=== PATIENT | male | born 1990 | race Caucasian/White ===

== ENCOUNTER 2017-02-19 20:56 | Emergency (ER) | payer OTHER ==
[~2017-02-19] VITALS: Ht 182.9 cm; Wt 99.8 kg
[2017-02-19 21:17] VITALS: BP 124/83
--- NOTE | 2017-02-19 22:10 | ED UPPER/LOWER EXTREMITY COMPL ---
History of Present Illness General Chief Complaint: Shoulder Injury Stated Complaint: L SHOULDER INJURY AT WORK Source: patient Exam Limitations: no limitations Vital Signs & Intake/Output Vital Signs & Intake/Output Vital Signs Date Time Temp Pulse Resp B/P B/P Pulse O2 O2 Flow FiO2 Mean Ox Delivery Rate 02/19 2117 96.0 80 18 124/83 98 Room Air Allergies Coded Allergies: amoxicillin (Intermediate, RASH 02/19/17) Reconcile Medications Naproxen (Naprosyn) 500 MG TABLET 1 TAB PO BID PRN PAIN START 02/20/17 Triage Note: PT TO ER C/C LEFT SHOULDER PAIN X 5 HRS S/P LIFTING BOX OVER HEAD AT WORK. STATES HEARD POP, NOW HAS PAIN WHEN LIFTING ARM. DOES NOT WANT TO FILL OUT WORKMANS COMP PAPERWORK PRESENTLY. Triage Nurses Notes Reviewed? yes Onset: Abrupt Duration: hour(s): (5) Timing: no prior history Severity: moderate Severity Numbers: 7 Pain/Injury Location: Left: Shoulder. Method of Injury: LIFTING OVER HEAD Modifying Factors: Improves With: immobilization. Worsens With: movement. HPI: Patient is a 26-year-old male presenting to the emergency department today complaining of left shoulder that started earlier today during work. Patient was lifting a box overhead and felt a pop in his left shoulder. He was able to continue working throughout the day but by the end of the day the pain in his left shoulder worsen. Patient denies any radiation of pain. No numbness or tingling. Denies any pain prior to arrival. Denies any chest pain palpitations or shortness of breath. Pain is worsened. He, intermittently sharp and stabbing. (Tiffany Swain) Past History Travel History Traveled to [place] past 21 day No Medical History Any Pertinent Medical History? see below for history Surgical History Surgical History: non-contributory Psychosocial History What is your primary language Sinhala Tobacco Use: Never used Family History Hx Contributory? No (Tiffany Swain) Review of Systems Review of Systems Constitutional: Reports: no symptoms. Comments Review of systems: See HPI, All other systems negative. Constitutional, no chills fever or weight loss HEENT: No visual changes no sore throat no congestion Cardiovascular: No chest pain ,palpitation Skin, no jaundice no rashes Respiratory: No dyspnea cough GI: No nausea no vomiting Muscle skeletal: no back pain, no neck pain, Neurologic: No numbness Immunology: No splenectomy or history of AIDS (Rene BISWAS,Tiffany) Physical Exam Physical Exam General Appearance: well developed/nourished, no apparent distress, alert, awake , comfortable Comments: Well-developed well-nourished person in no acute distress HEENT: Normocephalic, atraumatic Neck: Supple, no lymphadenopathy, normal range of motion without pain or tenderness Back: Nontender, Cardiovascular: Radial pulses are 2+ bilaterally. Respiratory: No respiratory distress. Extremity: Tender to palpation over the left acromioclavicular joint, limited range of motion of left shoulder secondary to pain. Pain at approximately 45 of left shoulder abduction. Pain with left shoulder abduction. Nontender to palpation over the left clavicle. Full range of motion of left elbow, left wrist without difficulty or pain. Neuro: Alert oriented x3, motor sensory normaL Skin: No appreciable rash on exposed skin, skin is warm and dry. Psych: Mood and affect is normal, memory and judgment is normal. (Rene BISWAS,Tiffany) Progress Differential Diagnosis: contusion, dislocation, fracture, sprain, tendon injury, ROTATOR CUFF TEAR Plan of Care: Orders Procedure Date/time Status Durable Medical Equipment 02/20 2228 Active Diagnostic Imaging: Viewed by Me: Radiology Read. Discussed w/RAD: Radiology Read. Radiology Impression: PATIENT: EMIL SMILEY PRESENT AGE: 26 PATIENT ACCOUNT NO: [id number] : 92 LOCATION: [facility] ORDERING PHYSICIAN: Tiffany BISWAS SERVICE DATE: 02/19/17 EXAM TYPE: RAD - XRY-SHOULDER COMPLETE-LEFT EXAMINATION: XR SHOULDER, LEFT CLINICAL INFORMATION: History of pain with range of motion. [place] a pop COMPARISON: None TECHNIQUE: Three views of the left shoulder. FINDINGS: The bones and soft tissues are normal. No fracture. Glenohumeral and acromioclavicular alignment is anatomic with normal joint space. No abnormal soft tissue calcifications. IMPRESSION: Normal left shoulder. DICTATED BY: Edward Trujillo MD DATE/TIME DICTATED:02/19/172219 ACADEMY DIRECTOR:CARLINE DATE/TIME TRANSCRIBED:2219 CONFIDENTIAL, DO NOT COPY WITHOUT APPROPRIATE AUTHORIZATION. < Electronically signed in Other Vendor System> (Tiffany Swain) Departure Departure Time of Disposition: 2227 Disposition: HOME OR SELF CARE Condition: Stable Clinical Impression Primary Impression: Shoulder sprain Qualifiers: Encounter type: initial encounter Shoulder sprain type: unspecified sprain Laterality: left Qualified Code: S43.402A - Unspecified sprain of left shoulder joint, initial encounter Referrals: Patient Has No Primary Care Dr (PCP/Family) Delgado FLORES,Seng Medrano Additional Instructions: Follow-up with orthopedics, call to make an appointment in the next 5-7 days. Wear sling for comfort. Take anti-inflammatories as prescribed. Return for worsening symptoms or concerns. Departure Forms: Customer Survey General Discharge Information Prescriptions: Current Visit Scripts Naproxen (Naprosyn) 1 TAB PO BID PRN PAIN #14 TAB START 02/20/17 (Tiffany Swain) PA/SEED SERVICE ADVISOR Co-Sign Statement Statement: ED Attending supervision documentation- I saw and evaluated the patient. I have also reviewed all the pertinent lab results and diagnostic results. I agree with the findings and the plan of care as documented in the PA's/SEED SERVICE ADVISOR's documentation. x I have reviewed the ED Record and agree with the PA's/SEED SERVICE ADVISOR's documentation. [] Additions or exceptions (if any) to the PAs/SEED SERVICE ADVISOR's note and plan are summarized below: [] (Rick FLORES,Dwight) Procedures Splinting Location: LEFT SHOULDER Manual Alignment Performed: No Pre-Made Type: SLING Splint: SLING Pre-Proc Neuro Vasc Exam: normal Post-Proc Neuro Vasc Exam: normal Progress: Tolerated procedure well. (Tiffany Swain)
--- NOTE | 2017-02-19 22:25 | RADIOLOGY REPORT ---
EXAMINATION: XR SHOULDER, LEFT CLINICAL INFORMATION: History of pain with range of motion. [place] a pop COMPARISON: None TECHNIQUE: Three views of the left shoulder. FINDINGS: The bones and soft tissues are normal. No fracture. Glenohumeral and acromioclavicular alignment is anatomic with normal joint space. No abnormal soft tissue calcifications. IMPRESSION: Normal left shoulder.
[2017-02-19] MEDS ORDERED: NAPROSYN500 M1 PO (22:36)
== END 2017-02-19 22:46 ==
LOC: ERH 20:56
DX: S43.402A Unspecified sprain of left shoulder joint, initial encounter (principal); X58.XXXA Exposure to other specified factors, initial encounter; Y92.9 Unspecified place or not applicable; Y93.9 Activity, unspecified
CPT/HCPCS: 73030-LT; 96372; J1885